=== PATIENT | male | born 1990 | race Caucasian/White ===

== ENCOUNTER 2017-10-16 15:35 | Emergency (ER) | payer SELFPAY ==
--- NOTE | 2017-10-16 16:16 | EDM.PDOC ---
ED HPI GENERAL MEDICAL PROBLEM - General Chief Complaint: General Stated Complaint: SICK Time Seen by Provider: 10/16/17 15:40 Source of Information: Reports: Patient History Limitations: Reports: No Limitations - History of Present Illness INITIAL COMMENTS - FREE TEXT/NARRATIVE: HISTORY AND PHYSICAL: History of present illness: Patient is a 27-year-old male who presents to the emergency room today with complaints of chest congestion. He states yesterday he did not feel well and had some coughing, chest congestion and 1 episode of vomiting. He reports he was sent home from work and his employer would like him evaluated to make sure he is "okay to return". Reports he has taken some [id number] cough medication and does feel improved. He denies any fever, chills, chest pain, shortness of breath, abdominal pain, nausea, vomiting or diarrhea. Review of systems: As per history of present illness and below otherwise all systems reviewed and negative. Past medical history: As per history of present illness and as reviewed below otherwise noncontributory. Surgical history: As per history of present illness and as reviewed below otherwise noncontributory. Social history: No reported history of drug or alcohol abuse. Family history: As per history of present illness and as reviewed below otherwise noncontributory. Physical exam: General: Non-toxic appearing 27 -year-old male. Well-developed and well- nourished. Appears in no acute distress. HEENT: Atraumatic, normocephalic, pupils reactive, negative for conjunctival pallor or scleral icterus, mucous membranes moist, throat clear, neck supple, nontender, trachea midline. Lungs: Clear to auscultation, breath sounds equal bilaterally, chest nontender. Heart: S1S2, regular rate and rhythm Abdomen: Soft, nondistended, nontender. Negative for masses or hepatosplenomegaly. Negative for costovertebral tenderness. Pelvis: Stable nontender. Genitourinary: Deferred. Rectal: Deferred. Extremities: Atraumatic, moves all, negative for cords or calf pain. Neurovascular unremarkable. Neuro: Awake, alert, oriented. Cranial nerves II through XII unremarkable. Cerebellum unremarkable. Motor and sensory unremarkable throughout. Exam nonfocal. Negative influenza, strep, and chest x-ray. Patient states he feels better as the day has gone on. This is likely viral illness. Did encourage him supportive care measures at home. He states he will hollow up with his primary care if symptoms worsen. Denies any questions at this time. Diagnostics: Influenza, strep, CXR Therapeutics: [] Impression: Viral Illness Plan: 1. Please use Tylenol and/or ibuprofen as needed for pain management. 2. Drink plenty of fluids to prevent dehydration. Rest. 3. Follow up with her primary care provider as needed. Return to the ED as needed and as discussed. Definitive disposition and diagnosis as appropriate pending reevaluation and review of above. - Related Data Allergies Allergy/AdvReac Type Severity Reaction Status Date / Time No Known Allergies Allergy Verified 10/16/17 15:51 Home Meds: Home Meds . [No Known Home Meds] 10/16/17 [History] Past Medical History - Past Health History Medical/Surgical History: Denies Medical/Surgical History - Infectious Disease History Infectious Disease History: Reports: Chicken Pox Social & Family History - Family History Family Medical History: Noncontributory - Tobacco Use Smoking Status *Q: Current Every Day Smoker Years of Tobacco use: 6 Packs/Tins Daily: 1 - Recreational Drug Use Recreational Drug Use: No ED ROS GENERAL - Review of Systems Review Of Systems: ROS reveals no pertinent complaints other than HPI. ED EXAM, GENERAL - Physical Exam Exam: See Below (See dictation) Course - Vital Signs Last Recorded V/S: Last Vital Signs Temp 98.4 F 10/16/17 15:49 Pulse 94 10/16/17 15:49 Resp 18 10/16/17 15:49 BP 149/87 H 10/16/17 15:49 Pulse Ox 96 10/16/17 15:49 - Orders/Labs/Meds Orders: Active Orders 24 hr Category Date Time Status Chest 2V [CR] Stat Exams 10/16/17 15:49 Taken CULTURE STREP A CONFIRMATION [RM] Stat Lab 10/16/17 15:57 Results STREP SCRN A RAPID W CULT CONF [RM] Stat Lab 10/16/17 15:57 Results Departure - Departure Time of Disposition: 16:44 Disposition: Home, Self-Care 01 Clinical Impression: Viral illness - Discharge Information Referrals: PCP,None [Primary Care Provider] - Forms: ED Department Discharge Additional Instructions: My general discharge The following information is given to patients seen in the emergency department who are being discharged to home. This information is to outline your options for follow-up care. We provide all patients seen in our emergency department with a follow-up referral. The need for follow-up, as well as the timing and circumstances, are variable depending upon the specifics of your emergency department visit. If you don't have a primary care physician on staff, we will provide you with a referral. We always advise you to contact your personal physician following an emergency department visit to inform them of the circumstance of the visit and for follow-up with them and/or the need for any referrals to a consulting specialist. The emergency department will also refer you to a specialist when appropriate. This referral assures that you have the opportunity for follow-up care with a specialist. All of these measure are taken in an effort to provide you with optimal care, which includes your follow-up. Under all circumstances we always encourage you to contact your private physician who remains a resource for coordinating your care. When calling for follow-up care, please make the office aware that this follow-up is from your recent emergency room visit. If for any reason you are refused follow-up, please contact the [facility] Emergency Department at and asked to speak to the emergency department charge nurse. [facility] [address] [place] [address] 1. Please use Tylenol and/or ibuprofen as needed for pain management. 2. Drink plenty of fluids to prevent dehydration. Rest. 3. Follow up with her primary care provider as needed. Return to the ED as needed and as discussed. - My Orders Last 24 Hours: My Active Orders 10/16/17 15:49 Chest 2V [CR] Stat 10/16/17 15:57 CULTURE STREP A CONFIRMATION [RM] Stat STREP SCRN A RAPID W CULT CONF [RM] Stat - Assessment/Plan Last 24 Hours: My Active Orders 10/16/17 15:49 Chest 2V [CR] Stat 10/16/17 15:57 CULTURE STREP A CONFIRMATION [RM] Stat STREP SCRN A RAPID W CULT CONF [RM] Stat
--- NOTE | 2017-10-16 17:20 | CR ---
EXAM DATE: 10/16/17 PATIENT'S AGE: 27 Patient: EDA ECKERT Facility: [place], [place] Site . Site : 1990 Study: XRay Chest [id number] 4:38:39 PM Ordering Physician: Doctor Kamara Final Report: INDICATION: flu TECHNIQUE: Chest 2 views. COMPARISON: None. FINDINGS: Cardiovascular and mediastinum: Heart size and vasculature are normal in caliber and appearance. Mediastinum is within normal limits. Lungs and pleural spaces: Lungs are clear. No sign of infiltrate or mass. No sign of pleural effusion. No pneumothorax. Bones and soft tissues: No significant findings. IMPRESSION: Unremarkable chest. Dictated by: Nick Ware MD @ 10/16/2017 16:59:29 (Electronic Signature) Report Signed by Proxy. EVELIN
== END 2017-10-16 17:00 | disposition home or self-care (01) ==
LOC: MW.ED 15:35
DX: B34.9 Viral infection, unspecified (principal); F17.210 Nicotine dependence, cigarettes, uncomplicated
CPT/HCPCS: 71046; 71046-26; 87081; 87804; 87880; 99283